=== PATIENT | male | born 1940 | race Caucasian/White ===

== ENCOUNTER 2023-01-10 09:42 | Outpatient (CLI) | payer OTHER, SELFPAY ==
--- NOTE | 2023-01-10 10:48 | P.ANES_ITS ---
Anesthesia Charges Start Date/Time Anesthesia Start Date: 01/10/23 Anesthesia Start Time: 10:15 Stop Date/Time Anesthesia Stop Date: 01/10/23 Anesthesia Stop Time: 10:45 Summary Extremes of Age - Over 70 or under 1: AUTOMATIC CHIEF
== END 2023-01-10 09:43 | disposition home or self-care (01) ==
PROVIDERS: PCP Family Medicine; Visit Provider Internal Medicine Gastroenterology
DX: Z86.010 Personal history of colon polyps (principal); K63.5 Polyp of colon; K57.30 Diverticulosis of large intestine without perforation or abscess without bleeding
CPT/HCPCS: 45380; 45385; 811; 88305; 99100; J2704